=== PATIENT | male | born 1945 | race Caucasian/White ===

== ENCOUNTER → 2017-12-02 | Outpatient (CLI) | payer OTHER ==
[~2017-12-02] MED LIST: ACET500; Advil200 M1; BENADRYL25 MG; DAILY MULTIPLE1 EACH; IRBE150; KRILL OIL500 MG; MELA3; Red Yeast Rice600 MG; Saw Palmetto160 MG
== END | disposition home or self-care (01) ==
LOC: PLD 11:38 → LAB SHORT 11:38
DX: D48.5 Neoplasm of uncertain behavior of skin (principal)
CPT/HCPCS: 88305

== ENCOUNTER → 2021-02-07 | Outpatient (CLI) | payer OTHER | LOC: LAB SHORT 10:40 → PLD 10:40 | DX: D48.5 Neoplasm of uncertain behavior of skin (principal); D22.39 Melanocytic nevi of other parts of face; Z88.8 Allergy status to other drugs, medicaments and biological substances | CPT/HCPCS: 88305 ==